=== PATIENT | male | born 1995 | race Caucasian/White ===

== ENCOUNTER 2016-08-30 00:51 | Inpatient (IN) ==
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
[2016-08-30] MEDS ORDERED: Tdap (Boostrix) Vaccine 0.5 ML SYRINGE IM ONE (01:50)
[2016-08-30 04:29] LABS: Basophils % 0.4 %; Eosinophils # 0.1 K/mcL (0.0-0.6); Eosinophils % 1.4 %; Hematocrit 48.3 % (37.5-50.1); Hemoglobin 16.5 g/dL (12.9-16.9); Immature Granulocytes % 0.3 % (0-4); Lymphocytes # 5.5 K/mcL (0.6-4.6); Lymphocytes % 55.5 %; Mean Corpuscular HGB Conc 34.2 g/dL (31.6-35.5); Mean Corpuscular Hemoglobin 30.8 pg (28.0-33.3); Mean Corpuscular Volume 90.3 fL (83.0-100.0); Mean Platelet Volume 9.1 fL (9.4-12.4); Monocytes # 0.9 K/mcL (0.0-1.3); Monocytes % 8.9 %; Neutrophils # 3.3 K/mcL (1.6-8.9); Platelet Count 276 K/mcL (140-400); Red Blood Count 5.35 M/mcL (4.19-5.50); Red Cell Distribution Width 12.5 % (11.5-14.5); Segmented Neutrophils % 33.5 %
[2016-08-30] MEDS ORDERED: Acetaminophen 325 MG TABLET PO PRN (07:53)
[2016-08-30] MEDS ORDERED: Ondansetron 4 MG/2 ML VIAL IVP PRN (07:53)
[2016-08-30] MEDS ORDERED: *HR* OxyCODONE Immed Rel 5 MG TABLET PO PRN (07:53)
[2016-08-30] MEDS ORDERED: Naloxone 0.4 MG/ML INJ IVP PRN (07:53)
[2016-08-30 07:54] LABS: Alanine Aminotransferase 103 Units/L (0-55); Albumin 4.3 g/dL (3.5-5.0); Albumin/Globulin Ratio 1.4 (1.1-2.2); Alkaline Phosphatase 69 Units/L (38-126); Aspartate Amino Transferase 49 Units/L (5-34); BUN/Creatinine Ratio 11 (6-26); Bilirubin,Direct 0.5 mg/dL (0.0-0.5); Bilirubin,Indirect 0.4 mg/dL (0.0-1.2); Bilirubin,Total 0.9 mg/dL (0.2-1.2); Blood Urea Nitrogen 10 mg/dL (8-26); Calcium 9.3 mg/dL (8.6-10.8); Carbon Dioxide 22 mEq/L (19-29); Chloride 106 mEq/L (98-109); Glucose 79 mg/dL (70-99); Osmolality,Calculated 286 (280-300); Potassium 3.7 mEq/L (3.5-4.5); Sodium 139 mEq/L (136-145); Total Protein 7.3 g/dL (6.0-8.3); eGFR For African Americans > 60 (> 60); eGFR For Non-African Americans > 60 (> 60)
[2016-08-30 08:03] LABS: Bilirubin,Urine Negative (Negative); Blood,Urine Negative (Negative); Clarity,Urine Cloudy (Clear); Color,Urine Yellow (Yellow); Glucose,Urine (UA) Normal (Normal); Ketones,Urine Negative (Negative); Leukocyte Esterase,Urine Negative (Negative); Nitrite,Urine Negative (Negative); Protein,Urine Negative (Neg-Trace); Specific Gravity,Urine 1.013 (1.010-1.025); Urobilinogen,Urine Normal (Normal)
[2016-08-30 08:05] LABS: Bacteria,Urine None Seen per hpf (None-Few); Hyaline Casts,Urine None Seen per lpf (None-Few); RBC,Urine 0-3 per hpf (0-3); Squamous Epithelial Cell,Urine Few per lpf (None-Few); WBC,Urine 0-3 per hpf (0-3)
[2016-08-30 08:10] LABS: Amphetamine Screen,Urine Negative ng/mL (Cutoff=1000); Barbiturate Screen,Urine Negative ng/mL (Cutoff=200); Benzodiazepines Screen,Urine Positive ng/mL (Cutoff=200); Cannabinoid Screen,Urine Positive ng/mL (Cutoff = 50); Cocaine Screen,Urine Positive ng/mL (Cutoff= 300); Opiate Screen,Urine Negative ng/mL (Cutoff=300); Phencyclidine Screen,Urine Negative ng/mL (Cutoff=25)
[2016-08-30 08:14] LABS: Thyroid Stimulating Hormone 1.161 mcIU/mL (0.350-4.840)
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
[2016-08-30] MEDS: 0.9 % Sodium Chloride 1,000 ML IVC SCH ×3 (08:33→22:04)
[2016-08-30] MEDS: *HR* Morphine 2 MG/ML SYRINGE IVP PRN ×2 (08:34→18:15)
[2016-08-30 08:54] LABS: Ethanol 87 mg/dL (0-10)
[2016-08-30 08:55] LABS: Acetaminophen < 1.0 mcg/mL (10-30); Salicylate < 5.0 mg/dL (15-30)
--- NOTE | 2016-08-30 14:15 | Electrocardiograph Report ---
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
--- NOTE | 2016-08-30 14:18 | Electrocardiograph Report ---
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
[2016-08-30] MEDS: Famotidine 20 MG/2 ML VIAL IVP SCH (17:08)
[2016-08-31] MEDS: Nicotine 2 MG GUM BC PRN ×4 (03:27→14:05)
[2016-08-31] MEDS: 0.9 % Sodium Chloride 1,000 ML IVC SCH ×2 (03:34→10:02)
[2016-08-31 05:16] LABS: Basophils % 0.3 %; Eosinophils # 0.1 K/mcL (0.0-0.6); Eosinophils % 1.1 %; Hematocrit 42.6 % (37.5-50.1); Hemoglobin 14.5 g/dL (12.9-16.9); Immature Granulocytes % 0.3 % (0-4); Lymphocytes # 4.7 K/mcL (0.6-4.6); Lymphocytes % 52.7 %; Mean Corpuscular Hemoglobin 31.8 pg (28.0-33.3); Mean Corpuscular Volume 93.4 fL (83.0-100.0); Mean Platelet Volume 9.8 fL (9.4-12.4); Monocytes # 0.9 K/mcL (0.0-1.3); Monocytes % 9.5 %; Neutrophils # 3.2 K/mcL (1.6-8.9); Platelet Count 223 K/mcL (140-400); Red Blood Count 4.56 M/mcL (4.19-5.50); Red Cell Distribution Width 12.5 % (11.5-14.5); Segmented Neutrophils % 36.1 %
[2016-08-31 05:28] LABS: Alanine Aminotransferase 74 Units/L (0-55); Albumin/Globulin Ratio 1.5 (1.1-2.2); Alkaline Phosphatase 58 Units/L (38-126); Aspartate Amino Transferase 36 Units/L (5-34); BUN/Creatinine Ratio 7 (6-26); Blood Urea Nitrogen 7 mg/dL (8-26); Calcium 8.6 mg/dL (8.6-10.8); Carbon Dioxide 26 mEq/L (19-29); Chloride 108 mEq/L (98-109); Globulin 2.2 g/dL (2.4-3.5); Glucose 82 mg/dL (70-99); Magnesium 1.7 mg/dL (1.6-2.6); Osmolality,Calculated 287 (280-300); Phosphorous 3.6 mg/dL (2.3-4.7); Potassium 4.2 mEq/L (3.5-4.5); Sodium 140 mEq/L (136-145); eGFR For African Americans > 60 (> 60); eGFR For Non-African Americans > 60 (> 60)
[2016-08-31 05:51] LABS: Albumin 3.4 g/dL (3.5-5.0); Total Protein 5.6 g/dL (6.0-8.3)
[2016-08-31] MEDS: Famotidine 20 MG/2 ML VIAL IVP SCH (06:01)
[2016-08-31] MEDS: *HR* Morphine 2 MG/ML SYRINGE IVP PRN ×3 (06:03→13:57)
[2016-08-31 11:35] VITALS: BP 107/70
[2016-08-31] MEDS ORDERED: *HR* LORazepam 0.5 MG TABLET PO PRN (12:09)
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
--- NOTE | 2016-08-31 17:31 | Electrocardiograph Report ---
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
== END 2016-08-31 15:10 | disposition home or self-care (01) | DRG 918 ==
LOC: EMEROO 00:51 → 3ANU 00:51
PROVIDERS: ADMIT Family Medicine; ATTEND Family Medicine

== ENCOUNTER 2016-08-31 15:23 | Inpatient (IN) ==
[2016-08-31] MEDS ORDERED: *HR* LORazepam 1 MG TABLET PO PRN (17:09)
[2016-08-31] MEDS ORDERED: Mag Hydrox/Al Hydrox/Simeth 30 ML UDC PO PRN (17:09)
[2016-08-31] MEDS ORDERED: MOM Conc 10 ML UD.LIQ PO PRN (17:09)
[2016-08-31] MEDS ORDERED: *HR* LORazepam 2 MG/ML VIAL IM PRN (17:09)
[2016-08-31] MEDS ORDERED: Haloperidol Lactate 5 MG/ML VIAL IM PRN (17:09)
[2016-08-31] MEDS ORDERED: Ibuprofen 400 MG TABLET PO PRN (17:09)
[2016-08-31] MEDS ORDERED: cloNIDine HCl 0.1 MG TABLET PO PRN (18:54)
[2016-08-31] MEDS: Melatonin 3 MG TABLET PO SCH (20:52)
[2016-08-31] MEDS: Nicotine 2 MG GUM BC PRN (20:55)
[2016-08-31] MEDS: traZODone 50 MG TABLET PO SCH (20:56)
[2016-08-31] MEDS ORDERED: traZODone 50 MG TABLET PO PRN (21:00)
[2016-09-01] MEDS: Nicotine 2 MG GUM BC PRN ×4 (09:20→17:20)
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
[2016-09-01] MEDS: Divalproex (12 HR) 500 MG TABLET PO SCH ×2 (10:31→20:22)
[2016-09-01] MEDS: OLANZapine 5 MG TAB.RAPDIS PO SCH (20:22)
[2016-09-01] MEDS: Melatonin 3 MG TABLET PO SCH (20:22)
[2016-09-01] MEDS: traZODone 50 MG TABLET PO SCH (20:22)
[2016-09-01] MEDS ORDERED: Divalproex (12 HR) 500 MG TABLET PO SCH (21:00)
--- NOTE | 2016-09-02 09:00 | Psychiatry Progress Note ---
Date of Encounter: 09/02/16 Time of Encounter: 08:55 Subjective Interval history: Looks better. Client reports he feels the same but he is far less irritable with this health science writer. Able to have a conversation with good eye contact. Even smiled a couple of times. No hostility during this interaction. Staff report he is still irritable with them at times and he tends to interact with short, clipped answers. However, he has not acted aggressively like he said he would. Parents visited and client reported the visits went well. Very negative about parents yesterday but now feeling more supported. Thinks returning to live with them will be a positive thing. Already linked with services. Denying any SI, intent, or plan at this time. Discussed the possibility of discharge tomorrow if staff are able to safety plan with parents and arrange follow-up appointments. Will need a Depakote level within a couple of days of discharge so that his outpatient psychiatrist can adjust the dose as needed. Review of Systems Constitutional: Denies: fever, chills, weakness, weight change Eyes: Denies: eye pain, vision change Ears, Nose, Throat: Denies: ear pain, throat pain, dental pain, hearing loss, congestion Cardiovascular: Denies: chest pain, palpitations, dyspnea on exertion Respiratory: Denies: cough, dyspnea, wheezes Gastrointestinal: Denies: abdominal pain, nausea, vomiting, diarrhea, constipation Musculoskeletal: Denies: joint swelling, joint pain Neurological: Denies: headache, weakness, numbness, memory loss Objective: Exam Patient orientation: Yes Person, Yes Time, Yes Place Level of alertness: Alert Patient appearance: Appropriate Behavior: calm, cooperative Psychomotor activity: Normal Eye contact: Maintains Eye Contact Mood description: Irritable Affect description: full range Speech pattern: Normal rate, Normal rhythm, Normal tone Speech volume: Normal Thought process: Linear, Goal Oriented Thought content: No Suicidal ideation, No Homicidal ideation, No Overt delusions Perceptual disturbances: No Auditory hallucinations, No Visual hallucinations Judgment: Limited Insight: Minimal Results - Vital Signs Vital Signs: Temp Pulse Resp BP 99.2 F 69 18 143/92 09/01/16 21:00 09/01/16 21:00 09/01/16 21:00 09/01/16 21:00 Assessment and Plan (1) Suicide attempt Current visit: No Status: Acute Plan: Continue hospitalization, Close observation, Suicide Precautions per unit protocol, Encourage participation in unit milieu, Group Therapy, Monitor sleep, Monitor appetite Risks, benefits, side effects, alternatives discussed w/pt: Yes Patient agreeable to treatment: Yes
[2016-09-02] MEDS: Divalproex (12 HR) 500 MG TABLET PO SCH ×2 (09:17→20:36)
[2016-09-02] MEDS: Nicotine 2 MG GUM BC PRN ×3 (09:17→16:53)
[2016-09-02] MEDS: hydrOXYzine pamoate 25 MG CAPSULE PO PRN (12:58)
[2016-09-02] MEDS: OLANZapine 5 MG TAB.RAPDIS PO SCH (20:35)
[2016-09-02] MEDS: traZODone 50 MG TABLET PO SCH (20:36)
[2016-09-02] MEDS: Melatonin 3 MG TABLET PO SCH (20:36)
[2016-09-03] MEDS: Nicotine 2 MG GUM BC PRN ×2 (08:51→14:06)
[2016-09-03] MEDS: Divalproex (12 HR) 500 MG TABLET PO SCH (08:51)
[2016-09-03 09:56] VITALS: BP 135/84
[2016-09-03] MEDS: hydrOXYzine pamoate 25 MG CAPSULE PO PRN (11:35)
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
== END 2016-09-03 16:07 | disposition home or self-care (01) | DRG 885 ==
LOC: 1ANU 15:23 → SUATTDRO 15:23
PROVIDERS: ADMIT Psychiatry & Neurology Psychiatry; ATTEND Psychiatry & Neurology Psychiatry

== ENCOUNTER 2017-01-14 22:41 | Inpatient (IN) ==
--- NOTE | 2017-01-14 23:02 | Emergency Department Note ---
Overdose - Lab Data Result diagrams: 01/14/17 23:59 01/14/17 23:59 Lab Results 01/14/17 01/14/17 01/14/17 Range/Units 23:17 23:17 23:59 WBC 13.1 H (4.3-11.1) K/mcL RBC 5.31 (4.19-5.50) M/mcL Hgb 16.8 (12.9-16.9) g/dL Hct 48.4 (37.5-50.1) % MCV 91.1 (83.0-100.0) fL MCH 31.6 (28.0-33.3) pg MCHC 34.7 (31.6-35.5) g/dL RDW 12.5 (11.5-14.5) % Plt Count 239 (140-400) K/mcL MPV 9.6 (9.4-12.4) fL Immature Gran % 0.2 (0-4) % Seg Neutrophils % 36.4 % Lymphocytes % 53.7 % Monocytes % 8.4 % Eosinophils % 0.8 % Basophils % 0.5 % Neutrophils # 4.8 (1.6-8.9) K/mcL Lymphocytes # 7.1 H (0.6-4.6) K/mcL Monocytes # 1.1 (0.0-1.3) K/mcL Eosinophils # 0.1 (0.0-0.6) K/mcL Basophils # 0.1 (0.0-0.2) K/mcL Nucleated RBCs/100 WBC 0.2 H (0) /100 WBC Sodium (136-145) mEq/L Potassium (3.5-4.5) mEq/L Chloride (98-109) mEq/L Carbon Dioxide (19-29) mEq/L BUN (8-26) mg/dL Creatinine (0.72-1.25) mg/dL Est GFR ( Amer) (> 60) Est GFR (Non-Af Amer) (> 60) BUN/Creatinine Ratio (6-26) Glucose (70-99) mg/dL Calculated Osmolality (280-300) Calcium (8.6-10.8) mg/dL Total Bilirubin (0.2-1.2) mg/dL Direct Bilirubin (0.0-0.5) mg/dL Indirect Bilirubin (0.0-1.2) mg/dL AST (5-34) Units/L ALT (0-55) Units/L Alkaline Phosphatase (38-126) Units/L Serum Total Protein (6.0-8.3) g/dL Albumin (3.5-5.0) g/dL Globulin (2.4-3.5) g/dL Albumin/Globulin Ratio (1.1-2.2) Urine Color Yellow (Yellow) Urine Clarity Cloudy A (Clear) Urine pH 6.0 (5.0-8.0) pH Units Ur Specific [place] 1.018 (1.010-1.025) Urine Protein Negative (Neg-Trace) mg/dL Urine Glucose (UA) Normal (Normal) mg/dL Urine Ketones Negative (Negative) mg/dL Urine Blood Negative (Negative) Urine Nitrite Negative (Negative) Urine Bilirubin Negative (Negative) Urine Urobilinogen Normal (Normal) mg/dL Ur Leukocyte Esterase Negative (Negative) Urine Microscopic RBC 0-3 (0-3) per hpf Urine Microscopic WBC 0-3 (0-3) per hpf Urine Bacteria Few (None-Few) per hpf Urine Mucus Few (Few) Salicylates (15-30) mg/dL Urine Opiates Screen Negative (Udighp=714) ng/mL Acetaminophen (10-30) mcg/mL Ur Barbiturates Screen Negative (Mmwujk=497) ng/mL Valproic Acid (50-100) mcg/mL Ur Phencyclidine Scrn Negative (Cutoff=25) ng/mL Ur Amphetamines Screen Negative (Gjizsi=5005) ng/mL U Benzodiazepines Scrn Negative (Kwrpll=849) ng/mL Urine Cocaine Screen Positive H (Cutoff= 300) ng/mL U Marijuana (THC) Screen Positive H (Cutoff = 50) ng/mL Ethyl Alcohol (0-10) mg/dL 01/14/17 01/14/17 Range/Units 23:59 23:59 WBC (4.3-11.1) K/mcL RBC (4.19-5.50) M/mcL Hgb (12.9-16.9) g/dL Hct (37.5-50.1) % MCV (83.0-100.0) fL MCH (28.0-33.3) pg MCHC (31.6-35.5) g/dL RDW (11.5-14.5) % Plt Count (140-400) K/mcL MPV (9.4-12.4) fL Immature Gran % (0-4) % Seg Neutrophils % % Lymphocytes % % Monocytes % % Eosinophils % % Basophils % % Neutrophils # (1.6-8.9) K/mcL Lymphocytes # (0.6-4.6) K/mcL Monocytes # (0.0-1.3) K/mcL Eosinophils # (0.0-0.6) K/mcL Basophils # (0.0-0.2) K/mcL Nucleated RBCs/100 WBC (0) /100 WBC Sodium 139 (136-145) mEq/L Potassium 3.7 (3.5-4.5) mEq/L Chloride 99 (98-109) mEq/L Carbon Dioxide 29 (19-29) mEq/L BUN 11 (8-26) mg/dL Creatinine 1.14 (0.72-1.25) mg/dL Est GFR ( Amer) > 60 (> 60) Est GFR (Non-Af Amer) > 60 (> 60) BUN/Creatinine Ratio 10 (6-26) Glucose 93 (70-99) mg/dL Calculated Osmolality 287 (280-300) Calcium 10.0 (8.6-10.8) mg/dL Total Bilirubin 0.9 (0.2-1.2) mg/dL Direct Bilirubin 0.3 (0.0-0.5) mg/dL Indirect Bilirubin 0.6 (0.0-1.2) mg/dL AST 21 (5-34) Units/L ALT 61 H (0-55) Units/L Alkaline Phosphatase 59 (38-126) Units/L Serum Total Protein 7.2 (6.0-8.3) g/dL Albumin 4.3 (3.5-5.0) g/dL Globulin 2.9 (2.4-3.5) g/dL Albumin/Globulin Ratio 1.5 (1.1-2.2) Urine Color (Yellow) Urine Clarity (Clear) Urine pH (5.0-8.0) pH Units Ur Specific [place] (1.010-1.025) Urine Protein (Neg-Trace) mg/dL Urine Glucose (UA) (Normal) mg/dL Urine Ketones (Negative) mg/dL Urine Blood (Negative) Urine Nitrite (Negative) Urine Bilirubin (Negative) Urine Urobilinogen (Normal) mg/dL Ur Leukocyte Esterase (Negative) Urine Microscopic RBC (0-3) per hpf Urine Microscopic WBC (0-3) per hpf Urine Bacteria (None-Few) per hpf Urine Mucus (Few) Salicylates < 5.0 L (15-30) mg/dL Urine Opiates Screen (Wvcfxh=003) ng/mL Acetaminophen < 1.0 L (10-30) mcg/mL Ur Barbiturates Screen (Sdjiur=223) ng/mL Valproic Acid 40.62 L (50-100) mcg/mL Ur Phencyclidine Scrn (Cutoff=25) ng/mL Ur Amphetamines Screen (Potehl=5353) ng/mL U Benzodiazepines Scrn (Efnuiy=346) ng/mL Urine Cocaine Screen (Cutoff= 300) ng/mL U Marijuana (THC) Screen (Cutoff = 50) ng/mL Ethyl Alcohol < 10 (0-10) mg/dL Overdose HPI - General Chief Complaint: ED Overdose Stated Complaint: OD Time Seen by Provider: 01/14/17 22:48 Source: patient, EMS Limitations: no limitations Nursing Notes Reviewed: Yes Vital Signs Reviewed: Yes - History of Present Illness HPI Narrative: Mr. Morse, a 21yo male, presents from home via EMS after intentional overdose. PAtient requested to his mother that she bring him to the ED for suicidal ideation; she refused. His response was to ingest the below medications. Time of ingestion: 20:30 Hydroxyzine 50mg x12 tablets (600mg) Divalproex 500mg x 28 tablets (14,000mg) Olanzepine 10mg x14 tablets (140mg) PMH: Asthma, schizoaffective, hx SI - Related Data Previous Rx's Medication Instructions Recorded Divalproex (12 HR) [Depakote (12 500 mg PO BID #60 09/03/16 HR)] OLANZapine [Zyprexa Zydis] 5 mg PO HS #30 09/03/16 hydrOXYzine pamoate [HydrOXYzine 25 mg PO TID PRN #90 09/03/16 Pamoate] traZODone [TraZODone] 100 mg PO HS #30 tab 09/03/16 Allergies Allergy/AdvReac Type Severity Reaction Status Date / Time No Known Allergies Allergy Verified 03/07/16 11:03 All systems ED: reviewed and negative except as stated. Review of Systems: As Per HPI Past Medical History - Past Medical History Medical history: Reports: asthma Surgical history: Reports: no surgical history Psychiatric history: Reports: depression, prior suicide attempt, schizophrenia - Social History Smoking Status: Current every day smoker Smokeless Tobacco Status: No Alcohol use: Reports: heavy Drug use: Reports: cocaine, opiates, marijuana, methamphetamine Physical Exam Vital Signs Reviewed General: Patient is in no acute distress, sleeping, arousable to pain and voice HEENT: No facial asymmetry. Head is normocephalic and atraumatic. PERRLA, EOMI. Oral mucosa moist. trachea midline. Cardiovascular: Heart regular rate and rhythm without clicks, rubs, gallops, or murmurs. No JVD. PMI nondisplaced. Respiratory: Symmetric chest rise with good respiratory effort. Bilateral breath sounds are clear without wheezing, crackles, or rhonchi. Abdomen: Bowel sounds present normoactive x-4 quadrants. Abdomen is soft, nondistended, and nontender. No organomegaly noted. Musculoskeletal: Spontaneously moving all extremities. Neuro: GCS 11 - E3, V3, M5 Psych: Patient's affect is appropriate for situation. - General Limitations: no limitations General appearance: in no apparent distress, lethargic Course Course Narrative: 23:05 Spoke with poison control: Supportive care, watching for [employer] depression, watch for anticholinergic symp. No recommendation for charcoal. 01:30 Spoke again with poison control and relate patient's laboratory workup. There are no additional recommendations at this time. When asked the endpoint for medical clearance, they indicate what I would consider clinically sober; patient is awake, alert, conversing normally, behaving appropriately. This should take approximately 8 hours from time of ingestion (approximately 04:30 this morning). I discussed the patient with the admitting hospitalist, Dr. hilario sykes, who agrees to accept the patient for continued monitoring and medical clearance mental health evaluation. Patient remains asleep, in no apparent distress. Vital signs stable on bedside monitor. He continues to oxygenate well on room air. Vital Signs Temperature 98.7 F 01/14/17 22:50 Pulse Rate 81 01/14/17 22:50 Respiratory Rate 16 01/14/17 22:50 Blood Pressure 122/85 01/14/17 22:50 O2 Sat by Pulse Oximetry 95 01/14/17 22:50 Temperature 98.7 F 01/14/17 22:50 Pulse Rate 92 01/15/17 01:00 Respiratory Rate 16 01/14/17 22:50 Blood Pressure 119/87 01/15/17 01:00 O2 Sat by Pulse Oximetry 97 01/15/17 01:00 Oxygen Delivery Oxygen Delivery Room Air Disposition Clinical Impression: Suicide attempt, Intentional overdose of drug in tablet form Disposition: Admitted As Inpatient Condition: Fair Forms: ED Satisfaction Letter Time of Disposition: 02:29
[2017-01-14] MEDS ORDERED: 0.9 % Sodium Chloride 1,000 ML IVC ONE (23:07)
[2017-01-14 23:29] LABS: Bilirubin,Urine Negative (Negative); Blood,Urine Negative (Negative); Clarity,Urine Cloudy (Clear); Color,Urine Yellow (Yellow); Glucose,Urine (UA) Normal (Normal); Ketones,Urine Negative (Negative); Leukocyte Esterase,Urine Negative (Negative); Nitrite,Urine Negative (Negative); Protein,Urine Negative (Neg-Trace); Specific Gravity,Urine 1.018 (1.010-1.025); Urobilinogen,Urine Normal (Normal)
[2017-01-14 23:34] LABS: Amphetamine Screen,Urine Negative ng/mL (Cutoff=1000); Barbiturate Screen,Urine Negative ng/mL (Cutoff=200); Benzodiazepines Screen,Urine Negative ng/mL (Cutoff=200); Cannabinoid Screen,Urine Positive ng/mL (Cutoff = 50); Cocaine Screen,Urine Positive ng/mL (Cutoff= 300); Opiate Screen,Urine Negative ng/mL (Cutoff=300); Phencyclidine Screen,Urine Negative ng/mL (Cutoff=25)
[2017-01-14 23:43] LABS: Bacteria,Urine Few per hpf (None-Few); Mucus,Urine Few (Few); RBC,Urine 0-3 per hpf (0-3); WBC,Urine 0-3 per hpf (0-3)
[2017-01-15 00:07] LABS: Basophils # 0.1 K/mcL (0.0-0.2); Basophils % 0.5 %; Eosinophils # 0.1 K/mcL (0.0-0.6); Eosinophils % 0.8 %; Hematocrit 48.4 % (37.5-50.1); Hemoglobin 16.8 g/dL (12.9-16.9); Immature Granulocytes % 0.2 % (0-4); Lymphocytes # 7.1 K/mcL (0.6-4.6); Lymphocytes % 53.7 %; Mean Corpuscular HGB Conc 34.7 g/dL (31.6-35.5); Mean Corpuscular Hemoglobin 31.6 pg (28.0-33.3); Mean Corpuscular Volume 91.1 fL (83.0-100.0); Mean Platelet Volume 9.6 fL (9.4-12.4); Monocytes # 1.1 K/mcL (0.0-1.3); Monocytes % 8.4 %; Neutrophils # 4.8 K/mcL (1.6-8.9); Nucleated Red Blood Cells 0.2 /100 WBC (0); Platelet Count 239 K/mcL (140-400); Red Blood Count 5.31 M/mcL (4.19-5.50); Red Cell Distribution Width 12.5 % (11.5-14.5); Segmented Neutrophils % 36.4 %
[2017-01-15 00:25] LABS: Alanine Aminotransferase 61 Units/L (0-55); Albumin 4.3 g/dL (3.5-5.0); Albumin/Globulin Ratio 1.5 (1.1-2.2); Alkaline Phosphatase 59 Units/L (38-126); Aspartate Amino Transferase 21 Units/L (5-34); BUN/Creatinine Ratio 10 (6-26); Bilirubin,Direct 0.3 mg/dL (0.0-0.5); Bilirubin,Indirect 0.6 mg/dL (0.0-1.2); Bilirubin,Total 0.9 mg/dL (0.2-1.2); Blood Urea Nitrogen 11 mg/dL (8-26); Carbon Dioxide 29 mEq/L (19-29); Chloride 99 mEq/L (98-109); Globulin 2.9 g/dL (2.4-3.5); Glucose 93 mg/dL (70-99); Osmolality,Calculated 287 (280-300); Potassium 3.7 mEq/L (3.5-4.5); Sodium 139 mEq/L (136-145); Total Protein 7.2 g/dL (6.0-8.3); eGFR For African Americans > 60 (> 60); eGFR For Non-African Americans > 60 (> 60)
[2017-01-15 00:40] LABS: Acetaminophen < 1.0 mcg/mL (10-30); Ethanol < 10 mg/dL (0-10); Salicylate < 5.0 mg/dL (15-30)
--- NOTE | 2017-01-15 02:33 | Emergency Department Note ---
Overdose - Lab Data Lab results reviewed: Yes I reviewed the patient's lab results. Result diagrams: 01/14/17 23:59 01/14/17 23:59 Lab Results 01/14/17 01/14/17 01/14/17 Range/Units 23:17 23:17 23:59 WBC 13.1 H (4.3-11.1) K/mcL RBC 5.31 (4.19-5.50) M/mcL Hgb 16.8 (12.9-16.9) g/dL Hct 48.4 (37.5-50.1) % MCV 91.1 (83.0-100.0) fL MCH 31.6 (28.0-33.3) pg MCHC 34.7 (31.6-35.5) g/dL RDW 12.5 (11.5-14.5) % Plt Count 239 (140-400) K/mcL MPV 9.6 (9.4-12.4) fL Immature Gran % 0.2 (0-4) % Seg Neutrophils % 36.4 % Lymphocytes % 53.7 % Monocytes % 8.4 % Eosinophils % 0.8 % Basophils % 0.5 % Neutrophils # 4.8 (1.6-8.9) K/mcL Lymphocytes # 7.1 H (0.6-4.6) K/mcL Monocytes # 1.1 (0.0-1.3) K/mcL Eosinophils # 0.1 (0.0-0.6) K/mcL Basophils # 0.1 (0.0-0.2) K/mcL Nucleated RBCs/100 WBC 0.2 H (0) /100 WBC Sodium (136-145) mEq/L Potassium (3.5-4.5) mEq/L Chloride (98-109) mEq/L Carbon Dioxide (19-29) mEq/L BUN (8-26) mg/dL Creatinine (0.72-1.25) mg/dL Est GFR ( Amer) (> 60) Est GFR (Non-Af Amer) (> 60) BUN/Creatinine Ratio (6-26) Glucose (70-99) mg/dL Calculated Osmolality (280-300) Calcium (8.6-10.8) mg/dL Total Bilirubin (0.2-1.2) mg/dL Direct Bilirubin (0.0-0.5) mg/dL Indirect Bilirubin (0.0-1.2) mg/dL AST (5-34) Units/L ALT (0-55) Units/L Alkaline Phosphatase (38-126) Units/L Serum Total Protein (6.0-8.3) g/dL Albumin (3.5-5.0) g/dL Globulin (2.4-3.5) g/dL Albumin/Globulin Ratio (1.1-2.2) Urine Color Yellow (Yellow) Urine Clarity Cloudy A (Clear) Urine pH 6.0 (5.0-8.0) pH Units Ur Specific [place] 1.018 (1.010-1.025) Urine Protein Negative (Neg-Trace) mg/dL Urine Glucose (UA) Normal (Normal) mg/dL Urine Ketones Negative (Negative) mg/dL Urine Blood Negative (Negative) Urine Nitrite Negative (Negative) Urine Bilirubin Negative (Negative) Urine Urobilinogen Normal (Normal) mg/dL Ur Leukocyte Esterase Negative (Negative) Urine Microscopic RBC 0-3 (0-3) per hpf Urine Microscopic WBC 0-3 (0-3) per hpf Urine Bacteria Few (None-Few) per hpf Urine Mucus Few (Few) Salicylates (15-30) mg/dL Urine Opiates Screen Negative (Wydhik=769) ng/mL Acetaminophen (10-30) mcg/mL Ur Barbiturates Screen Negative (Rijmlu=831) ng/mL Valproic Acid (50-100) mcg/mL Ur Phencyclidine Scrn Negative (Cutoff=25) ng/mL Ur Amphetamines Screen Negative (Uehvsk=4865) ng/mL U Benzodiazepines Scrn Negative (Rptups=856) ng/mL Urine Cocaine Screen Positive H (Cutoff= 300) ng/mL U Marijuana (THC) Screen Positive H (Cutoff = 50) ng/mL Ethyl Alcohol (0-10) mg/dL 01/14/17 01/14/17 Range/Units 23:59 23:59 WBC (4.3-11.1) K/mcL RBC (4.19-5.50) M/mcL Hgb (12.9-16.9) g/dL Hct (37.5-50.1) % MCV (83.0-100.0) fL MCH (28.0-33.3) pg MCHC (31.6-35.5) g/dL RDW (11.5-14.5) % Plt Count (140-400) K/mcL MPV (9.4-12.4) fL Immature Gran % (0-4) % Seg Neutrophils % % Lymphocytes % % Monocytes % % Eosinophils % % Basophils % % Neutrophils # (1.6-8.9) K/mcL Lymphocytes # (0.6-4.6) K/mcL Monocytes # (0.0-1.3) K/mcL Eosinophils # (0.0-0.6) K/mcL Basophils # (0.0-0.2) K/mcL Nucleated RBCs/100 WBC (0) /100 WBC Sodium 139 (136-145) mEq/L Potassium 3.7 (3.5-4.5) mEq/L Chloride 99 (98-109) mEq/L Carbon Dioxide 29 (19-29) mEq/L BUN 11 (8-26) mg/dL Creatinine 1.14 (0.72-1.25) mg/dL Est GFR ( Amer) > 60 (> 60) Est GFR (Non-Af Amer) > 60 (> 60) BUN/Creatinine Ratio 10 (6-26) Glucose 93 (70-99) mg/dL Calculated Osmolality 287 (280-300) Calcium 10.0 (8.6-10.8) mg/dL Total Bilirubin 0.9 (0.2-1.2) mg/dL Direct Bilirubin 0.3 (0.0-0.5) mg/dL Indirect Bilirubin 0.6 (0.0-1.2) mg/dL AST 21 (5-34) Units/L ALT 61 H (0-55) Units/L Alkaline Phosphatase 59 (38-126) Units/L Serum Total Protein 7.2 (6.0-8.3) g/dL Albumin 4.3 (3.5-5.0) g/dL Globulin 2.9 (2.4-3.5) g/dL Albumin/Globulin Ratio 1.5 (1.1-2.2) Urine Color (Yellow) Urine Clarity (Clear) Urine pH (5.0-8.0) pH Units Ur Specific [place] (1.010-1.025) Urine Protein (Neg-Trace) mg/dL Urine Glucose (UA) (Normal) mg/dL Urine Ketones (Negative) mg/dL Urine Blood (Negative) Urine Nitrite (Negative) Urine Bilirubin (Negative) Urine Urobilinogen (Normal) mg/dL Ur Leukocyte Esterase (Negative) Urine Microscopic RBC (0-3) per hpf Urine Microscopic WBC (0-3) per hpf Urine Bacteria (None-Few) per hpf Urine Mucus (Few) Salicylates < 5.0 L (15-30) mg/dL Urine Opiates Screen (Iqkusm=957) ng/mL Acetaminophen < 1.0 L (10-30) mcg/mL Ur Barbiturates Screen (Bdlbho=005) ng/mL Valproic Acid 40.62 L (50-100) mcg/mL Ur Phencyclidine Scrn (Cutoff=25) ng/mL Ur Amphetamines Screen (Vpbjlu=4091) ng/mL U Benzodiazepines Scrn (Cclcwu=003) ng/mL Urine Cocaine Screen (Cutoff= 300) ng/mL U Marijuana (THC) Screen (Cutoff = 50) ng/mL Ethyl Alcohol < 10 (0-10) mg/dL - EKG Data EKG attestation: Yes I reviewed and interpreted this EKG. EKG results narrative: EKG dated 01/14/17 at 22:46 interpreted as sinus rhythm with a rate of 88. Bilateral intervals appear 144, QRS 94, QT/QTC 353/399. Normal axis. Isolated T-wave inversion in V1 which is present on comparative EKG dated 08/31/2016; no acute ischemic changes in comparison. Overdose HPI - General Chief Complaint: ED Overdose Stated Complaint: SI/OD Time Seen by Provider: 01/14/17 22:48 Source: patient, EMS Limitations: no limitations - Related Data Previous Rx's Medication Instructions Recorded Divalproex (12 HR) [Depakote (12 500 mg PO BID #60 09/03/16 HR)] OLANZapine [Zyprexa Zydis] 5 mg PO HS #30 09/03/16 hydrOXYzine pamoate [HydrOXYzine 25 mg PO TID PRN #90 09/03/16 Pamoate] traZODone [TraZODone] 100 mg PO HS #30 tab 09/03/16 Allergies Allergy/AdvReac Type Severity Reaction Status Date / Time No Known Allergies Allergy Verified 03/07/16 11:03 Past Medical History - Past Medical History Medical history: Reports: asthma Surgical history: Reports: no surgical history Psychiatric history: Reports: depression, prior suicide attempt, schizophrenia - Social History Smoking Status: Current every day smoker Smokeless Tobacco Status: No Alcohol use: Reports: heavy Drug use: Reports: cocaine, opiates, marijuana, methamphetamine Physical Exam - General Limitations: no limitations General appearance: in no apparent distress, lethargic Course Vital Signs Temperature 98.7 F 01/14/17 22:50 Pulse Rate 81 01/14/17 22:50 Respiratory Rate 16 01/14/17 22:50 Blood Pressure 122/85 01/14/17 22:50 O2 Sat by Pulse Oximetry 95 01/14/17 22:50 Temperature 98.7 F 01/14/17 22:50 Pulse Rate 92 01/15/17 01:00 Respiratory Rate 16 01/14/17 22:50 Blood Pressure 119/87 01/15/17 01:00 O2 Sat by Pulse Oximetry 97 01/15/17 01:00 Oxygen Delivery Oxygen Delivery Room Air Disposition Clinical Impression: Suicide attempt, Intentional overdose of drug in tablet form Disposition: Admitted As Inpatient Condition: Fair Referrals: NONE,PCP [Primary Care Provider] - Forms: ED Satisfaction Letter
[2017-01-15] MEDS ORDERED: Naloxone 0.4 MG/ML INJ IVP PRN (03:35)
--- NOTE | 2017-01-15 03:40 | Internal Med History&Physical ---
<Kyle Martinez - Last Filed: 01/15/17 04:16> Date of Encounter: 01/15/17 Internal Medicine - H&P: HPI History of present illness: Mr. Morse is a 21 year old male Internal Medicine - H&P: Meds Divalproex (12 HR) [Depakote (12 HR)] 500 mg PO BID #60 09/03/16 [Rx] OLANZapine [Zyprexa Zydis] 5 mg PO HS #30 09/03/16 [Rx] hydrOXYzine pamoate [HydrOXYzine Pamoate] 25 mg PO TID PRN #90 09/03/16 [Rx] traZODone [TraZODone] 100 mg PO HS #30 tab 09/03/16 [Rx] 3 Allergy/AdvReac Type Severity Reaction Status Date / Time No Known Allergies Allergy Verified 03/07/16 11:03 All Systems PM: A 10-system review of systems was performed and is negative for pertinent findings except as documented above in the HPI. - Constitutional Vitals: Temp Pulse Resp BP Pulse Ox 97.4 F L 62 18 97/60 97 01/15/17 03:22 01/15/17 03:22 01/15/17 03:22 01/15/17 03:22 01/15/17 03:22 Internal Med - H&P Results - Labs CBC & Chem 7: 01/14/17 23:59 01/14/17 23:59 - Attending Attestation I examined this patient and my medical decision-making was reviewed with the Resident Physician. I agree with the documented findings, disposition and treatment plan as described except to the extent set forth below. Polypharmacy ingestion, altered mental status. Discussed this with poison control. Admission for mental status clearance as well as evaluation of drug overdose. I spent greater than 35 minutes of critical care time resuscitating this acutely ill patient suffering from overdose and altered mental status. This is excluding billable procedures. <Norman Mena - Last Filed: 01/15/17 04:41> Date of Encounter: 01/15/17 Time of Encounter: 03:38 Assessment and Plan (1) Suicide attempt Current visit: Yes Status: Acute Time of ingestion: 20:30 Hydroxyzine 50mg x12 tablets (600mg) Divalproex 500mg x 28 tablets (14,000mg) Olanzapine 10mg x14 tablets (140mg) One liter bolus in the ED Continuing maintenance IVF Cardiac monitoring Sitter in room Psych consult pending We will continue to watch closely overnight (2) Overdose Current visit: No Status: Acute History of OD previously. See above Qualifiers: Encounter type: subsequent encounter Injury intent: intentional self-harm Qualified Code(s): T50.902D - Poisoning by unspecified drugs, medicaments and biological substances, intentional self-harm, subsequent encounter (3) Abnormal toxicological findings Current visit: Yes Status: Acute Positive for cocaine and THC (4) Schizoaffective disorder Current visit: No Status: Chronic Patient is taking Hydroxyzine 50mg, Divalproex 500mg and Olanzepine 10mg Qualifiers: Schizoaffective disorder type: bipolar Qualified Code(s): F25.0 - Schizoaffective disorder, bipolar type (5) Leukocytosis Current visit: Yes Status: Acute WBC 13.1. Likely reactive from ingestion. Will recheck Qualifiers: Leukocytosis type: unspecified Qualified Code(s): D72.829 - Elevated white blood cell count, unspecified Internal Medicine - H&P: HPI Chief complaint: suicidal attempt with medication overdose Admitted From: Home Plans for Post Hospital Care: Home History of present illness: Mr. Morse is a 21 year old male with a past medical history of asthma, schizoaffective disorder and history of suicidal ideations who presents to the [facility] Emergency Department due to suicidal attempt with medication overdose. Patient has a attempted suicide in the past and told his mother about his ideations today and she ignored his threats. Subsequently, at approximately 20:30 he ingested Hydroxyzine 50mg x12 tablets (600mg), Divalproex 500mg x 28 tablets (14,000mg) and Olanzepine 10mg x14 tablets (140mg) . On arrival to the ED, his vital signs were stable and was very obtunded. He was given IV fluids and initial bloodwork shows tox screen positive for THC and cocaine with WBC 13.1 and ALT 62. On evaluation, patient was still nonverbal but reactive to stimuli. We will admit Mr. Morse with close monitoring to for further management and psych clearance. Past Med Surg Social Fam HX - Past Medical History Medical history: asthma Psychiatric history: depression, prior suicide attempt, schizophrenia - Past Surgical History Surgical History: no surgical history - Social History Smoking Status: Current every day smoker Smokeless Tobacco Status: No Alcohol use: heavy Drug use: cocaine, opiates, marijuana, methamphetamine - Family History Mother Family Member Ethnicity: Non- Living Status: Still Living Hx Family Respiratory Disorders: Yes Father Living Status: Still Living ROS unobtainable: due to mental status All Systems PM: A 10-system review of systems was performed and is negative for pertinent findings except as documented above in the HPI. - Constitutional Vitals: Temp Pulse Resp BP Pulse Ox 97.4 F L 62 18 97/60 97 01/15/17 03:22 01/15/17 03:22 01/15/17 03:22 01/15/17 03:22 01/15/17 03:22 General appearance: Present: A&O X 0 (obtunded, sleeping in the room but reactive to stimuli, nonverbal, follows simple commands) - Head Head exam: Present: atraumatic, normocephalic - Eye Eye exam: Present: PERRL - Respiratory Respiratory exam: Present: CTAB. Absent: respiratory distress, rhonchi, wheezes - Cardiovascular Cardiovascular exam: Present: RRR, +S1, +S2 - GI/Abdominal GI/Abdominal exam: Present: normal bowel sounds, soft. Absent: distended - Rectal Rectal exam: Present: deferred - Extremities Exam Extremities exam: Present: normal capillary refill, normal inspection, warm. Absent: pedal edema - Neurological Exam Neurological exam: Present: altered (obtunded, reacts to stimuli, nonverbal) - Psychiatric Psychiatric exam: Present: suicidal ideation - Skin Skin exam: Present: dry, warm. Absent: cyanosis, diaphoretic Internal Med - H&P Results - Labs CBC & Chem 7: 01/14/17 23:59 01/14/17 23:59 <Rommel Cai - Last Filed: 01/15/17 04:55> Date of Encounter: 01/15/17 Internal Medicine - H&P: HPI History of present illness: Mr. Morse is a 21 year old male All Systems PM: A 10-system review of systems was performed and is negative for pertinent findings except as documented above in the HPI. - Constitutional Vitals: Temp Pulse Resp BP Pulse Ox 97.4 F L 62 18 97/60 97 01/15/17 03:22 01/15/17 03:22 01/15/17 03:22 01/15/17 03:22 01/15/17 03:22 Internal Med - H&P Results - Labs CBC & Chem 7: 01/14/17 23:59 01/14/17 23:59 - Attending Attestation I examined this patient and my medical decision-making was reviewed with the Resident Physician. I agree with the documented findings, disposition and treatment plan as described except to the extent set forth below. I have seen and examined the patient. Patient presents to the ED after intentional overdose. He has ingested Hydroxyzine, Depakote and Olanzapine. Patient apparently did not have suicidal intent. History of suicidal attempt in the past. Initial EKG shows sinus rhythm with no acute ST-T changes. There is no QT prolongation. Patient will be on IV fluids and supportive care. Will need a sitter. Psychiatry consult pending. On examination patient is obtunded but arousable to stimuli. He is not in any distress. Resting comfortably. No family members at bedside. Patient will be on telemetry. We will monitor closely. CODE STATUS full code.
[2017-01-15] MEDS: 0.9 % Sodium Chloride 1,000 ML IVC SCH ×2 (05:01→05:02)
[2017-01-15] MEDS: Famotidine 20 MG/2 ML VIAL IVP SCH ×2 (06:49→17:44)
--- NOTE | 2017-01-15 14:43 | Consult Note ---
Date of Encounter: 01/15/17 Time of Encounter: 14:38 Assessment & Recommendation (1) Intentional overdose of drug in tablet form Current visit: Yes Status: Acute Assessment & Recommendation: Transfer to psychiatry when medically stable. (2) Schizoaffective disorder Current visit: No Status: Chronic Qualifiers: Schizoaffective disorder type: bipolar Qualified Code(s): F25.0 - Schizoaffective disorder, bipolar type History of Present Illness Patient: known to practice within the last 3 years Requesting Physician: Leslie Frye CNP Reason for consult: Overdose History of present illness: Mr. Morse is a 21 year old male admitted to the medical unit for evaluation of overdose on multiple medication including Depakote and olanzapine and hydroxyzine. Vision is currently being stabilized, he is lethargic and unable to participate in evaluation due to his condition. Patient has a history of schizoaffective disorder and substance abuse on admission his UDS was positive for cocaine and THC. Patient also had previous overdose and suicide attempts in August 2016 and is followed up at the outpatient clinic for mental health's motives reported noncompliant and uncooperative. Medical records were reviewed. Psychiatric consultation was requested to evaluate and recommend treatment plan and disposition. CC: Leslie Frye CNP Past Med Surg Social Fam HX - Past Medical History Medical history: asthma - Past Psychiatric History Psychiatric history: Reports: bipolar, prior suicide attempt, previous psychiatric hospitalization - Past Surgical History Surgical History: no surgical history - Social History Smoking Status: Current every day smoker Smokeless Tobacco Status: No Alcohol use: heavy Drug use: cocaine, opiates, marijuana, methamphetamine - Family History Mother Family Member Ethnicity: Non- Living Status: Still Living Hx Family Respiratory Disorders: Yes Father Living Status: Still Living Medications & Allergies Divalproex (12 HR) [Depakote (12 HR)] 500 mg PO BID #60 09/03/16 [Rx] OLANZapine [Zyprexa Zydis] 5 mg PO HS #30 09/03/16 [Rx] hydrOXYzine pamoate [HydrOXYzine Pamoate] 25 mg PO TID PRN #90 09/03/16 [Rx] traZODone [TraZODone] 100 mg PO HS #30 tab 09/03/16 [Rx] 3 Allergy/AdvReac Type Severity Reaction Status Date / Time No Known Allergies Allergy Verified 01/15/17 07:33 Mental Status Exam Patient orientation: Yes Person Level of alertness: Sedated Patient appearance: Disheveled, Malodorous Behavior: uncooperative, withdrawn, other ( lethargic) Psychomotor activity: Slowed Eye contact: Minimal Contact Mood description: Other ( lethargic) Affect description: constricted, dysphoric Speech pattern: Non-verbal Speech volume: No speech Thought process: Slowed Thinking Thought content: Yes Suicidal ideation Perceptual disturbances: No Auditory hallucinations, No Visual hallucinations Attention span: Unable to Focus Memory description: Immediate Impaired, Recent Impaired, Remote Impaired Patient reliability: Not Reliable Historian Intelligence estimate: Below Average Judgment: Limited Insight: None Results - Vital Signs Vital signs: Temp Pulse Resp BP Pulse Ox 98.2 F 58 15 114/71 95 01/15/17 11:30 01/15/17 11:30 01/15/17 11:30 01/15/17 11:30 01/15/17 11:30 - Labs Labs: Laboratory Last Values WBC 13.1 K/mcL (4.3-11.1) H 01/14/17 23:59 RBC 5.31 M/mcL (4.19-5.50) 01/14/17 23:59 Hgb 16.8 g/dL (12.9-16.9) 01/14/17 23:59 Hct 48.4 % (37.5-50.1) 01/14/17 23:59 MCV 91.1 fL (83.0-100.0) 01/14/17 23:59 MCH 31.6 pg (28.0-33.3) 01/14/17 23:59 MCHC 34.7 g/dL (31.6-35.5) 01/14/17 23:59 RDW 12.5 % (11.5-14.5) 01/14/17 23:59 Plt Count 239 K/mcL (140-400) 01/14/17 23:59 MPV 9.6 fL (9.4-12.4) 01/14/17 23:59 Immature Gran % 0.2 % (0-4) 01/14/17 23:59 Seg Neutrophils % 36.4 % 01/14/17 23:59 Lymphocytes % 53.7 % 01/14/17 23:59 Monocytes % 8.4 % 01/14/17 23:59 Eosinophils % 0.8 % 01/14/17 23:59 Basophils % 0.5 % 01/14/17 23:59 Neutrophils # 4.8 K/mcL (1.6-8.9) 01/14/17 23:59 Lymphocytes # 7.1 K/mcL (0.6-4.6) H 01/14/17 23:59 Monocytes # 1.1 K/mcL (0.0-1.3) 01/14/17 23:59 Eosinophils # 0.1 K/mcL (0.0-0.6) 01/14/17 23:59 Basophils # 0.1 K/mcL (0.0-0.2) 01/14/17 23:59 Nucleated RBCs/100 WBC 0.2 /100 WBC (0) H 01/14/17 23:59 Sodium 139 mEq/L (136-145) 01/14/17 23:59 Potassium 3.7 mEq/L (3.5-4.5) 01/14/17 23:59 Chloride 99 mEq/L (98-109) 01/14/17 23:59 Carbon Dioxide 29 mEq/L (19-29) 01/14/17 23:59 BUN 11 mg/dL (8-26) 01/14/17 23:59 Creatinine 1.14 mg/dL (0.72-1.25) 01/14/17 23:59 Est GFR ( Amer) > 60 (> 60) 01/14/17 23:59 Est GFR (Non-Af Amer) > 60 (> 60) 01/14/17 23:59 BUN/Creatinine Ratio 10 (6-26) 01/14/17 23:59 Glucose 93 mg/dL (70-99) 01/14/17 23:59 Calculated Osmolality 287 (280-300) 01/14/17 23:59 Calcium 10.0 mg/dL (8.6-10.8) 01/14/17 23:59 Total Bilirubin 0.9 mg/dL (0.2-1.2) 01/14/17 23:59 Direct Bilirubin 0.3 mg/dL (0.0-0.5) 01/14/17 23:59 Indirect Bilirubin 0.6 mg/dL (0.0-1.2) 01/14/17 23:59 AST 21 Units/L (5-34) 01/14/17 23:59 ALT 61 Units/L (0-55) H 01/14/17 23:59 Alkaline Phosphatase 59 Units/L (38-126) 01/14/17 23:59 Serum Total Protein 7.2 g/dL (6.0-8.3) 01/14/17 23:59 Albumin 4.3 g/dL (3.5-5.0) 01/14/17 23:59 Globulin 2.9 g/dL (2.4-3.5) 01/14/17 23:59 Albumin/Globulin Ratio 1.5 (1.1-2.2) 01/14/17 23:59 Urine Color Yellow (Yellow) 01/14/17 23:17 Urine Clarity Cloudy (Clear) A 01/14/17 23:17 Urine pH 6.0 pH Units (5.0-8.0) 01/14/17 23:17 Ur Specific [place] 1.018 (1.010-1.025) 01/14/17 23:17 Urine Protein Negative mg/dL (Neg-Trace) 01/14/17 23:17 Urine Glucose (UA) Normal mg/dL (Normal) 01/14/17 23:17 Urine Ketones Negative mg/dL (Negative) 01/14/17 23:17 Urine Blood Negative (Negative) 01/14/17 23:17 Urine Nitrite Negative (Negative) 01/14/17 23:17 Urine Bilirubin Negative (Negative) 01/14/17 23:17 Urine Urobilinogen Normal mg/dL (Normal) 01/14/17 23:17 Ur Leukocyte Esterase Negative (Negative) 01/14/17 23:17 Urine Microscopic RBC 0-3 per hpf (0-3) 01/14/17 23:17 Urine Microscopic WBC 0-3 per hpf (0-3) 01/14/17 23:17 Urine Bacteria Few per hpf (None-Few) 01/14/17 23:17 Urine Mucus Few (Few) 01/14/17 23:17 Salicylates < 5.0 mg/dL (15-30) L 01/14/17 23:59 Urine Opiates Screen Negative ng/mL (Cbodne=309) 01/14/17 23:17 Acetaminophen < 1.0 mcg/mL (10-30) L 01/14/17 23:59 Ur Barbiturates Screen Negative ng/mL (Blriol=124) 01/14/17 23:17 Valproic Acid 40.62 mcg/mL (50-100) L 01/14/17 23:59 Ur Phencyclidine Scrn Negative ng/mL (Cutoff=25) 01/14/17 23:17 Ur Amphetamines Screen Negative ng/mL (Cuydxk=3705) 01/14/17 23:17 U Benzodiazepines Scrn Negative ng/mL (Hthihe=522) 01/14/17 23:17 Urine Cocaine Screen Positive ng/mL (Cutoff= 300) H 01/14/17 23:17 U Marijuana (THC) Screen Positive ng/mL (Cutoff = 50) H 01/14/17 23:17 Ethyl Alcohol < 10 mg/dL (0-10) 01/14/17 23:59 Consult Discharge Plan - Plan Referrals: NONE,PCP [Primary Care Provider] -
--- NOTE | 2017-01-15 15:01 | Event Note ---
Date of Encounter: 01/15/17 Time of Encounter: 15:01 Patient with history of hypertension, GERD, schizo effective disorder, patient was admitted early this morning due to suicide attempt took multiple drugs overdoses and brought to emergency room was obtunded patient is still heavily sleepy and obtunded sitter says patient was able to get up go to the bathroom but wobbly and sleepy and came back to bed and fell asleep again. Hemodynamically stable at this point
--- NOTE | 2017-01-15 19:39 | Electrocardiograph Report ---
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
[2017-01-15] MEDS ORDERED: 0.9 % Sodium Chloride 1,000 ML IVC ONE (21:18)
[2017-01-15] MEDS ORDERED: Acetaminophen 650 MG RECTAL SUPP RC ONE (21:18)
[2017-01-15] MEDS ORDERED: 0.9 % Sodium Chloride 1,000 ML IVC SCH (21:30)
[2017-01-16] MEDS ORDERED: Ibuprofen 400 MG TABLET PO ONE (05:12)
[2017-01-16] MEDS: Famotidine 20 MG/2 ML VIAL IVP SCH ×2 (05:21→16:46)
--- NOTE | 2017-01-16 12:12 | Internal Med Progress Note ---
Date of Encounter: 01/16/17 Time of Encounter: 12:10 - Assessment and plan (1) Overdose Current Visit: No Status: Acute Assessment and plan: clinically and medically fine Qualifiers: Encounter type: subsequent encounter Injury intent: intentional self-harm Qualified Code(s): T50.902D - Poisoning by unspecified drugs, medicaments and biological substances, intentional self-harm, subsequent encounter (2) Suicide attempt Current Visit: Yes Status: Acute Assessment and plan: seen by psych will transfer to psych (3) Schizoaffective disorder Current Visit: No Status: Chronic Assessment and plan: seen by psych Qualifiers: Schizoaffective disorder type: bipolar Qualified Code(s): F25.0 - Schizoaffective disorder, bipolar type (4) Polysubstance (excluding opioids) dependence Current Visit: No Status: Acute - Subjective Interval history: patient seen and examined says he is fine no medical complains - Constitutional Vitals: Temp Pulse Resp BP Pulse Ox 97.7 F 85 20 142/90 97 01/16/17 10:50 01/16/17 10:50 01/16/17 10:50 01/16/17 10:50 01/16/17 10:50 General appearance: Present: A&O X 0 (obtunded, sleeping in the room but reactive to stimuli, nonverbal, follows simple commands) - Head Head exam: Present: atraumatic, normocephalic - Eye Eye exam: Present: PERRL, conjuntiva pink, sclera anicteric Pupils: Present: PERRL - Neck Neck exam general surgery: Present: supple, trachea midline. Absent: lymphadenopathy - Respiratory Respiratory exam: Present: CTAB. Absent: accessory muscle use, rales, rhonchi, wheezes - Cardiovascular Cardiovascular exam: Present: RRR, +S1, +S2. Absent: diastolic murmur, gallop, rubs, systolic murmur - GI/Abdominal GI/Abdominal exam: Present: normal bowel sounds, soft, no peritoneal signs. Absent: distended, tenderness - Extremities Exam Extremities exam: Present: warm, radial pulses palpable and symmetrical. Absent : calf tenderness, cyanotic, pedal edema Internal Medicine: Result - Labs CBC & Chem 7: 01/14/17 23:59 01/14/17 23:59 Consult Discharge Plan - Plan Referrals: NONE,PCP [Primary Care Provider] -
[2017-01-16] MEDS: Nicotine 2 MG GUM BC PRN ×3 (12:17→17:46)
[2017-01-16 13:09] LABS: Hematocrit 48.2 % (37.5-50.1); Hemoglobin 16.5 g/dL (12.9-16.9); Mean Corpuscular HGB Conc 34.2 g/dL (31.6-35.5); Mean Corpuscular Hemoglobin 31.5 pg (28.0-33.3); Mean Platelet Volume 9.6 fL (9.4-12.4); Platelet Count 242 K/mcL (140-400); Red Blood Count 5.24 M/mcL (4.19-5.50); Red Cell Distribution Width 12.4 % (11.5-14.5)
[2017-01-16 13:23] LABS: BUN/Creatinine Ratio 10 (6-26); Blood Urea Nitrogen 8 mg/dL (8-26); Calcium 9.5 mg/dL (8.6-10.8); Carbon Dioxide 25 mEq/L (19-29); Chloride 107 mEq/L (98-109); Glucose 54 mg/dL (70-99); Osmolality,Calculated 288 (280-300); Potassium 4.1 mEq/L (3.5-4.5); Sodium 141 mEq/L (136-145); eGFR For African Americans > 60 (> 60); eGFR For Non-African Americans > 60 (> 60)
--- NOTE | 2017-01-16 14:38 | Discharge Summary ---
Date of Encounter: 01/16/17 Time of Encounter: 14:36 - Discharge Diagnosis (1) Overdose Priority: Primary Status: Acute Qualifiers: Encounter type: subsequent encounter Injury intent: intentional self-harm Qualified Code(s): T50.902D - Poisoning by unspecified drugs, medicaments and biological substances, intentional self-harm, subsequent encounter (2) Suicide attempt Priority: Secondary Status: Acute (3) Schizoaffective disorder Priority: Secondary Status: Chronic Qualifiers: Schizoaffective disorder type: bipolar Qualified Code(s): F25.0 - Schizoaffective disorder, bipolar type (4) Polysubstance (excluding opioids) dependence Priority: Secondary Status: Acute - Discharge Medications Home Medications: Divalproex (12 HR) [Depakote (12 HR)] 500 mg PO BID #60 09/03/16 [Rx] OLANZapine [Zyprexa Zydis] 5 mg PO HS #30 09/03/16 [Rx] hydrOXYzine pamoate [HydrOXYzine Pamoate] 25 mg PO TID PRN #90 09/03/16 [Rx] traZODone [TraZODone] 100 mg PO HS #30 tab 09/03/16 [Rx] Allergies/Adverse Reactions: 3 Allergy/AdvReac Type Severity Reaction Status Date / Time No Known Allergies Allergy Verified 01/15/17 07:33 Date of admission: 01/15/17 03:23 Primary care physician: PCP NONE Consults: 01/15/17 03:58 Consult to Psychiatry [CONS] Routine Consulting Provider: Psychiatry [place] Reason for Consult: Suicide attempt with medication overdose. Time of ingestion: 20:30 Hydroxyzine 50mg x12 tablets (600mg) Divalproex 500mg x 28 tablets (14,000mg) Olanzepine 10mg x14 tablets (140mg) Call Completed: Yes Discharging clinician: Denis Valenzuela Anticipated date of discharge: 01/16/17 - Patient Status Disposition: Transfer Psychiatric Hosp Condition: Good Overall status at discharge: patient is back to baseline - Discharge Instructions Follow Up With: NONE,PCP [Primary Care Provider] - Hospital course: Mr. Morse is a 21 year old male - Time Spent with Patient Total time spent providing and/or coordinating discharge services: - Constitutional Vitals: Temp Pulse Resp BP Pulse Ox 97.7 F 85 20 142/90 97 01/16/17 10:50 01/16/17 10:50 01/16/17 10:50 01/16/17 10:50 01/16/17 10:50 General appearance: Present: A&O X 0 (obtunded, sleeping in the room but reactive to stimuli, nonverbal, follows simple commands)
[2017-01-16 14:55] VITALS: BP 142/96
--- NOTE | 2017-01-16 18:37 | Event Note ---
Date of Encounter: 01/16/17 Time of Encounter: 18:37 Mr. Morse is a 21 y/o M admitted with multiple drug overdose and suicidal attempt. He was evaluated by psychiatrist and recommend in patient psychiatrist transfer. However now pt is agitated and combative, stating he does not have suicidal ideation and he wants to go home. I did reviewed his medical records and past history, he is definitely high risk for suicidal attempts and self harm , I do not think he is going to make any right judgment call now. He definitely would get benefit with in patient psychiatric admission. So I signed the pink slip to send him to in patient psych unit.
== END 2017-01-16 19:05 | DRG 918 ==
LOC: 3BNU 22:41 → EMEROO 22:41 → 3BNU 01-15 03:10
PROVIDERS: ADMIT Internal Medicine; ATTEND Registered Nurse

== ENCOUNTER 2017-01-16 19:15 | Inpatient (IN) ==
[2017-01-16] MEDS ORDERED: Mag Hydrox/Al Hydrox/Simeth 30 ML UDC PO PRN (19:22)
[2017-01-16] MEDS ORDERED: MOM Conc 10 ML UD.LIQ PO PRN (19:22)
[2017-01-16] MEDS ORDERED: Haloperidol Lactate 5 MG/ML VIAL IM PRN (19:22)
[2017-01-16] MEDS ORDERED: hydrOXYzine pamoate 25 MG CAPSULE PO PRN (19:22)
[2017-01-16] MEDS ORDERED: *HR* LORazepam 1 MG TABLET PO PRN (19:22)
[2017-01-16] MEDS ORDERED: *HR* LORazepam 2 MG/ML VIAL IM PRN (19:22)
[2017-01-16] MEDS ORDERED: Acetaminophen 325 MG TABLET PO PRN (19:22)
[2017-01-16] MEDS ORDERED: traZODone 50 MG TABLET PO PRN (19:22)
[2017-01-16] MEDS: Nicotine 2 MG GUM BC PRN (20:26)
[2017-01-17] MEDS: Nicotine 2 MG GUM BC PRN ×6 (08:01→21:33)
--- NOTE | 2017-01-17 10:27 | Psychiatry History & Physical ---
Date of Encounter: 01/17/17 Time of Encounter: 10:15 History of Present Illness Patient Stated Chief Complaint: Suicide attempt by overdose Medicare Admission Attestation: For traditional Medicare patients the provided hospital inpatient services are reasonable and necessary and in the case of services not specified as inpatient -only under 42 CFR 419.22 (n), that they are appropriately provided as inpatient services in accordance 42 CFR 412.3. For Critical Access Hospital the patient may reasonably be expected to be discharged or transferred to a hospital within 96 hours after admission to the Critical Access Hospital. Admitted From: Intrahospital Transfer (3 B) History of Present Illness: Mr. Morse is a 21 year old male transferred from the medical floor for further treatment of an overdose on medication in a suicide attempt. Patient was stabilized on the medical floor and psychiatry was consulted and recommended inpatient psychiatric admission for further treatment. Patient has a history of schizoaffective disorder substance abuse and previous psychiatric admission and previous suicide attempts with overdosing most recent in August 2016. Patient is reported to be noncompliant with outpatient appointments and treatment, continue to abuse THC cocaine and other drugs . He has poor insight into his illness, uncooperative with care and demanding to be discharged. He is currently on a pink slip and I explained to him the treatment plan. Past Med Surg Social Fam HX - Past Medical History Medical history: asthma - Past Psychiatric History Psychiatric history: Reports: bipolar, depression, prior suicide attempt, schizophrenia, previous psychiatric hospitalization Past psychiatric history details: Most recent hospitalization in August 2016 - Past Surgical History Surgical History: no surgical history - Social History Smoking Status: Current every day smoker Smokeless Tobacco Status: No Alcohol use: heavy Drug use: marijuana - Family History Mother Family Member Ethnicity: Non- Living Status: Still Living Hx Family Respiratory Disorders: Yes Hx Family Psychosocial Disorders: Yes (Bipolar) Father Living Status: Still Living Hx Family Medical Disorders: No Medications & Allergies Divalproex (12 HR) [Depakote (12 HR)] 500 mg PO BID #60 09/03/16 [Rx] 3 Allergy/AdvReac Type Severity Reaction Status Date / Time No Known Allergies Allergy Verified 01/15/17 07:33 Review of Systems Psychiatric: Reports: suicidal ideation, irritability, mood swings Mental Status Exam Patient orientation: Yes Person, Yes Time, Yes Place Level of alertness: Alert Patient appearance: Appropriate, Unkempt, Disheveled Behavior: calm, uncooperative, other (Argumentative) Psychomotor activity: Normal Eye contact: Maintains Eye Contact Mood description: Euthymic/stable, Labile, Irritable Affect description: congruent with mood, labile Speech pattern: Normal rate, Normal rhythm, Normal tone Speech volume: Normal Thought process: Linear, Goal Oriented, [place] Thought content: No Suicidal ideation, No Homicidal ideation, No Overt delusions Perceptual disturbances: No Auditory hallucinations, No Visual hallucinations Attention span: Capable of Focused Attention Memory description: Grossly Intact Patient reliability: Reliable Historian Intelligence estimate: Average Judgment: Limited Insight: Partial Results - Vital Signs Vital signs: Temp Pulse Resp BP 98.0 F 79 18 125/91 01/17/17 07:45 01/17/17 07:45 01/17/17 07:45 01/17/17 07:45 Assessment and Plan (1) Schizoaffective disorder Current visit: No Status: Chronic Plan: Admit inpatient for safety and stabilization, Close observation, Suicide Precautions per unit protocol, Encourage participation in unit milieu, Group Therapy, Monitor sleep, Monitor appetite Risks, benefits, side effects, alternatives discussed w/pt: Yes Patient agreeable to treatment: Yes Qualifiers: Schizoaffective disorder type: bipolar Qualified Code(s): F25.0 - Schizoaffective disorder, bipolar type (2) Suicide attempt Current visit: Yes Status: Acute Plan: Admit inpatient for safety and stabilization, Close observation, Suicide Precautions per unit protocol, Encourage participation in unit milieu, Group Therapy, Monitor sleep, Monitor appetite Risks, benefits, side effects, alternatives discussed w/pt: Yes Patient agreeable to treatment: Yes Estimated Length of Stay (Days): 3
--- NOTE | 2017-01-18 08:27 | Discharge Summary ---
Date of Encounter: 01/18/17 Time of Encounter: 08:24 Diagnosis - Discharge Diagnosis (1) Schizoaffective disorder Status: Chronic Qualifiers: Schizoaffective disorder type: bipolar Qualified Code(s): F25.0 - Schizoaffective disorder, bipolar type (2) Suicide attempt Status: Acute Medications - Discharge Medications 3 Allergy/AdvReac Type Severity Reaction Status Date / Time No Known Allergies Allergy Verified 01/15/17 07:33 Provider Date of admission: 01/16/17 19:15 Primary care physician: PCP NONE Discharging clinician: Abdelrahman Cosme Assessment and Plan - Patient/Caregiver Discharge Instructions Activity: resume usual activities as tolerated Diet: regular diet - Follow up Plan Follow up with: [facility] [place] [Other] - 01/18/17 10:30 am (You will see Dr. Donohue on 2016 at 11:00am.) Functional capacity at discharge: independent ambulation Overall status at discharge: Stable Disposition: Home, Self-Care Hospital Course Hospital course: Mr. Morse is a 21 year old male admitted from the medical after an overdose on medication in a suicide attempt. For details admission please see H&P Patient was observed, no medication was started after the overdose. Patient was cooperative and compliant. Patient was scheduled to see his mental health provider today and expressed desire to be discharged to attend appointments, this was confirmed by the social media developer with patient family. On discharge patient was medically stable denied any suicidal ideation and was educated about coping skills and substance abuse. His discharge in stable condition. - Time Spent with Patient Total time spent providing and/or coordinating discharge services: Less than 30 minutes Quality - Multiple Antipsychotics Patient discharged on 2 or more antipsychotic medications: No Procedures - Procedures Procedures: Medication Management, Crisis Stabilization, Supportive Therapy, Group Therapy, Psychoeducational Therapy Mental Status Exam - Mental Status Exam Patient orientation: Yes Person, Yes Time, Yes Place Level of alertness: Alert Patient appearance: Appropriate, Unkempt Behavior: calm, cooperative Psychomotor activity: Normal Eye contact: Maintains Eye Contact Mood description: Euthymic/stable Affect description: congruent with mood, full range Speech pattern: Normal rate, Normal rhythm, Normal tone Speech Volume: Normal Thought process: Linear, Goal Oriented Thought Content: No Suicidal ideation, No Homicidal ideation, No Overt delusions Perceptual Disturbances: No Auditory hallucinations, No Visual hallucinations Judgment: Limited Insight: Partial
[2017-01-18 10:48] VITALS: BP 133/88
== END 2017-01-18 09:00 | disposition home or self-care (01) | DRG 885 ==
LOC: 1ANU 19:15
PROVIDERS: ADMIT Psychiatry & Neurology Psychiatry; ATTEND Psychiatry & Neurology Psychiatry